=== PATIENT | male | born 1960 | race Caucasian/White ===

== ENCOUNTER → 2020-04-30 16:04 | Outpatient (CLI) | payer OTHER, SELFPAY ==
[2020-04-30 17:26] LABS: Cholesterol 156 mg/dL (140-199); HDL Cholesterol 48 mg/dL (40-60); Triglycerides 409 mg/dL (35-150)
== END ==
PROVIDERS: Referring Provider Internal Medicine Cardiovascular Disease; Visit Provider Internal Medicine Cardiovascular Disease
DX: E78.5 Hyperlipidemia, unspecified (principal)
CPT/HCPCS: 36415; 80061

== ENCOUNTER → 2020-12-28 09:36 | Outpatient (CLI) | payer OTHER, SELFPAY ==
[2020-12-28 10:02] LABS: COVID19 -Nasal RAPID Negative (Negative)
== END ==
PROVIDERS: PCP Internal Medicine; Visit Provider Surgery
DX: Z20.822 Contact with and (suspected) exposure to COVID-19 (principal)
CPT/HCPCS: 87635; C9803

== ENCOUNTER 2020-12-31 06:26 | Day surgery (SDC) | payer OTHER, SELFPAY ==
[2020-12-31 06:58] VITALS: BP 143/86; PULSE 53; RESP 14; TEMP 36.2; O2SAT 97; BMI 33.5
[2020-12-31] MEDS: SODIUM CHLORIDE 0.9% 1,000 ML 200 ML IV (07:09)
--- NOTE | 2020-12-31 07:42 | PM.HP.1 ---
History of Present Illness History of Present Illness Date Patient Seen: 12/31/20 Time Patient Seen: 07:42 Chief complaint: SCREENING COLONOSCOPY Narrative: This is a 60-year-old man who had a prior colonoscopy 6 and half years ago, on which a polyp was found. He denies any new symptoms since then. Specifically denies melena, hematochezia, unexplained abdominal pain, and unexplained weight loss. Denies any family history of colon polyps or colon cancers. He says he is otherwise in his usual state of health. ROS Thirteen system review is otherwise negative other than as mentioned below and in HPI. PE: GENERAL: Well groomed and cooperative. Appears stated age. Answers questions promptly and appropriately. Vital signs noted. HENT: Normocephalic, atraumatic. Hearing intact. EYES: Conjunctiva pink, sclera white, no periorbital swelling. CARDIOVASCULAR: Regular rate. No pedal edema. RESPIRATORY: Non-tachypneic, breathing comfortably on room air. GASTROINTESTINAL: Abdomen soft and non-distended GENITALURINARY: No flank tenderness. MUSCULOSKELETAL: Equal tone and mass bilaterally. SKIN: Warm, dry, soft, appropriate color for ethnicity. No other lesions, rashes, or wounds. NEURO: Alert and Oriented X 3. No gross sensory deficits, or cognitive issues. PSYCH: Appropriate affect and mood. Patient History Medical History Coronary artery disease Essential hypertension H/O adenomatous polyp of colon High coronary artery calcium score Mixed hyperlipidemia Obstructive sleep apnea, adult (~07/2011) Surgical History Anesthesia History of toe surgery (~1978) S/P inguinal hernia repair (~1979) Family & Social History Family History Father History of heart disease Mental health problem Mother Hypertension Mental health problem Grandmother Stroke Grandfather History of heart disease Grandmother Stroke Social History: household members spouse Tobacco & Substance use: Smoking Status Never smoker alcohol intake current alcohol intake frequency 0-2 drinks per day Substance Use Type does not use Meds Home Medications and Allergies Home Medications Medication Instructions Recorded Confirmed Type aspirin 81 mg tablet,delayed 81 mg PO DAILY 02/27/20 12/31/20 History release rosuvastatin 5 mg tablet 5 mg PO DAILY 02/27/20 12/31/20 History coenzyme Q10 100 mg capsule 100 mg PO DAILY 10/18/20 12/31/20 History brmckbxn-zxn-xdxao acid 300 1 tab PO DAILY 10/18/20 12/31/20 History mcg-lycopene 600 mcg-lutein 300 mcg tablet valsartan 80 mg tablet 80 mg PO DAILY tab 10/18/20 12/31/20 History omeprazole 40 mg capsule,delayed 40 mg PO DAILY #30 cap 11/27/20 12/31/20 Rx release Allergies Allergy/AdvReac Type Severity Reaction Status Date / Time doxycycline Allergy Severe Anaphylaxis Verified 12/31/20 06:53 atorvastatin AdvReac Intermediate Easy Verified 12/31/20 06:53 injuring losartan AdvReac Intermediate GI Verified 12/31/20 06:53 Exam Vital Signs (past 8 hours): - 12/31/20 06:58 Temperature 97.1 F L Pulse Rate 53 L Respiratory Rate 14 Blood Pressure 143/86 H Pulse Oximetry 97 Oxygen Delivery Method Nasal Cannula Assessment & Plan Assessment and plan (1) Personal history of colonic polyps: Status: Acute Assessment & Plan narrative: Risks and benefits of screening colonoscopy and possible polypectomy were discussed with the patient including risk of bleeding, perforation, need for additional procedures, risks of anesthesia. The patient desires to proceed with the colonoscopy procedure. COVID-19 COVID-19 status: Negative Result date/Date tested (Pos, Neg/Pending): 12/28/20 Time Spent With Patient Time with patient: 15-24 minutes Quality VTE Deep Vein Thrombosis/Pulmonary Embolism Present on Admission: No
--- NOTE | 2020-12-31 07:43 | P.OP.ENDO_ITS ---
Operative Date/Time/Diagnoses Date of procedure: 12/31/20 Time of procedure: 07:43 Pre-op diagnosis: Personal history of colon polyps, due for follow-up surveillance Procedure & Clinicians Study performed: Colonoscopy Procedural sedation performed by the endoscopist Same procedure as scheduled: Yes Indications: Personal history colon polyps, due for follow-up surveillance Surgeon: Hilda Neff Procedure Notes SCOAP/Timeout: Performed Procedure in detail: The patient was brought to the room and placed in left lateral decubitus position with all bony prominences padded. A time-out was performed and then the patient was given procedural sedation starting with 4 mg of Versed and 100 mcg of fentanyl. An additional 1 mg of Versed was given during the procedure for total of 5. Vitals were monitored throughout the procedure and remained stable. Once adequately sedated, the procedure was begun. A rectal exam was performed revealing no abnormalities. The colonoscope was then introduced to the rectum and advanced to the cecum in the usual fashion. The cecum was identified by the appendiceal orifice, the mucosal tri- fold, and the ileocecal valve. The scope was then retracted while rotating side to side and examining each mucosal fold. At the conclusion of the procedure retroflexion was performed and small grade 1-2 internal hemorrhoids without stigmata of bleeding were seen. The scope was then withdrawn from the rectum the procedure was concluded. The patient tolerated the procedure well and was transferred to the PACU in stable condition. Scope withdrawal time: 7 Sedation minutes: 22 Findings: other findings (Normal colon) Specimen(s): none sent Complications: none Impression: Normal colon, no polyps found today Post-procedure Recommendations: Colonscopy in 5 years (Due to personal history of colon polyps) Follow up: as needed Disposition: PACU
[2020-12-31] MEDS: fentaNYL 250 MCG/5 ML INJ IV (08:14)
[2020-12-31] MEDS: MIDAZOLAM 5 MG/5 ML VIAL IV (08:15)
[2020-12-31 08:23] VITALS: BP 128/80; PULSE 55; RESP 13; TEMP 36.4; O2SAT 94
[2020-12-31 08:26] VITALS: BP 129/84; PULSE 53; RESP 12; TEMP 36.4; O2SAT 95
[2020-12-31 08:28] VITALS: BP 122/82; PULSE 55; RESP 13; O2SAT 94
[2020-12-31 08:35] VITALS: BP 126/81; PULSE 52; RESP 13; TEMP 36.6; O2SAT 94
== END 2020-12-31 09:00 | disposition home or self-care (01) ==
PROVIDERS: PCP Internal Medicine; Referring Provider Surgery; Visit Provider Surgery
PROC: 0DJD8ZZ Inspection of Lower Intestinal Tract, Via Natural or Artificial Opening Endoscopic (ICD-10-PCS; CPT 45378; principal; 2020-12-31 07:45)
DX: Z12.11 Encounter for screening for malignant neoplasm of colon (principal); Z86.010 Personal history of colon polyps; I25.10 Atherosclerotic heart disease of native coronary artery without angina pectoris; I10 Essential (primary) hypertension; E78.2 Mixed hyperlipidemia; G47.33 Obstructive sleep apnea (adult) (pediatric); K64.0 First degree hemorrhoids
CPT/HCPCS: 45378; 99152; J2250; J3010

== ENCOUNTER 2021-03-19 14:52 | Emergency (ER) | payer OTHER, SELFPAY ==
[2021-03-19 14:56] VITALS: BP 142/84; PULSE 56; RESP 16; TEMP 36.4; O2SAT 97
[2021-03-19] MEDS: OXYCODONE/ACETAMINOPHEN 5/325 TABLET 1 TAB PO (18:49)
[2021-03-19] MEDS: IBUPROFEN 400 MG TABLET PO (18:49)
--- NOTE | 2021-03-19 19:00 | ED_ITS ---
HPI - Extremity Injury (Lower) General Chief Complaint: Extremity Injury, Lower Stated Complaint: INJURY TO CALF Time Seen by Provider: 03/19/21 15:03 Source: patient Mode of arrival: Ambulatory History of Present Illness HPI Narrative: 61-year-old gentleman with a history of hypertension hyperlipidemia on baby aspirin 81 mg presents with right calf pain. Notes he had been working in his yd this afternoon. Apparently the yd is quite slow but he started to slip and tried to catch himself with his right leg felt the loud pop in the calf and severe pain. The calf continues to swell and he is able to move his ankle without tenderness at his Achilles and there is no knee pain or tenderness Related Data Home Medications Medication Instructions Recorded Confirmed aspirin 81 mg tablet,delayed 81 mg PO DAILY 02/27/20 12/31/20 release rosuvastatin 5 mg tablet 5 mg PO DAILY 02/27/20 12/31/20 coenzyme Q10 100 mg capsule 100 mg PO DAILY 10/18/20 12/31/20 pschaaoy-epa-xtdkl acid 300 1 tab PO DAILY 10/18/20 12/31/20 mcg-lycopene 600 mcg-lutein 300 mcg tablet valsartan 80 mg tablet 80 mg PO DAILY tab 10/18/20 12/31/20 Previous Rx's Medication Instructions Recorded omeprazole 40 mg capsule,delayed 40 mg PO DAILY #30 cap 11/27/20 release oxycodone-acetaminophen 1 tab PO Q6H PRN 7 Days #14 tab 03/19/21 Allergies Allergy/AdvReac Type Severity Reaction Status Date / Time doxycycline Allergy Severe Anaphylaxis Verified 12/31/20 06:53 atorvastatin AdvReac Intermediate Easy Verified 12/31/20 06:53 injuring losartan AdvReac Intermediate GI Verified 12/31/20 06:53 Review of Systems Review of Systems Narrative: Pertinent positive and negative findings as per HPI Remainder of review of systems is otherwise unremarkable for Constitutional: Fevers, chills, weakness ENT: No sore throat, neck pain, ear pain CV: Chest pain, palpitations, Respiratory: Cough, wheeze, dyspnea GI: Nausea, vomiting, diarrhea, : Dysuria, hematuria, Patient History Medical History Coronary artery disease Essential hypertension H/O adenomatous polyp of colon High coronary artery calcium score Mixed hyperlipidemia Obstructive sleep apnea, adult (~07/2011) Surgical History Anesthesia History of toe surgery (~1978) S/P inguinal hernia repair (~1979) Family History Father History of heart disease Mental health problem Mother Hypertension Mental health problem Grandmother Stroke Grandfather History of heart disease Grandmother Stroke Social History marital status: number of children: 3 household members: spouse Smoking Status: Never smoker alcohol intake: current substance use type: does not use Smoking Status: Never smoker alcohol intake frequency: 0-2 drinks per day Substance Use Type: does not use Exam Narrative Exam Narrative: General: Alert appropriate in no acute distress Respiratory: Able to speak in full sentences, no obvious respiratory distress Skin: No obvious rashes, warm and dry Neurologic: Grossly intact no obvious asymmetries or abnormalities Psych: appropriate insight and affect, cooperative Extremity: Tenderness mid gastroc muscle right side with some swelling. No ecchymosis or contusion. No tenderness or defect to Achilles tendon, ankle or foot. No knee effusion or knee ligamentous tenderness. Initial Vital Signs Initial Vital Signs: Vital Signs Temperature 97.5 F L 03/19/21 14:56 Pulse Rate 56 L 03/19/21 14:56 Respiratory Rate 16 03/19/21 14:56 Blood Pressure 142/84 H 03/19/21 14:56 Pulse Oximetry 97 03/19/21 14:56 Procedures Orthopedic Splinting/Casting Left calf: Side: left Lower Extremity Injury Location: lower leg Lower Extremity Immobilizer: Suresh wrap Post splinting neuro exam: intact Post splinting vascular exam: intact Placed by: Provider Course Orders Ordered: Discontinued Medications Ibuprofen (Ibuprofen 400 Mg Tablet) 400 mg PO NOW ONE Stop: 03/19/21 15:04 Last Admin: 03/19/21 18:49 Dose: 400 mg Documented by: MICH Oxycodone/Acetaminophen (Oxycodone/Acetaminophen 5/325 Tablet) 1 tab PO NOW ONE Stop: 03/19/21 15:04 Last Admin: 03/19/21 18:49 Dose: 1 tab Documented by: MICH Oxycodone/Acetaminophen (Oxycodone/Apap 5/325 Prepack) 1 bottle [facility] ONE Stop: 03/19/21 19:37 Last Admin: 03/19/21 19:41 Dose: 1 bottle Documented by: Vital Signs Vital signs: Vital Signs - 8 hr 03/19/21 14:56 Temperature 97.5 F L Pulse Rate 56 L Respiratory Rate 16 Blood Pressure 142/84 H Pulse Oximetry 97 MDM - Extremity Injury (Lower) Medical Records Attestation: I reviewed the patient's medical records. [facility] Narrative Medical decision making narrative: [age] gentleman with exam and history consistent with gastroc muscle tear. At this point I do not suspect bony injury and imaging was not felt to be needed at this time. I do not suspect a DVT, internal derangement of the knee or Achilles tendon injury. Calf is wrapped w ith an Suresh wrap for compression and pain control. Discussed using crutches, elevating leg, pain control icing and follow-up with Orthopedic surgery. Discharge Plan Departure Patient Disposition: Home Clinical Impression: Gastrocnemius muscle tear Qualifiers: Encounter type: initial encounter Laterality: right Qualified Code(s): S86.111A - Strain of other muscle(s) and tendon(s) of posterior muscle group at lower leg level, right leg, initial encounter Instructions: DI for Calf Muscle Strain Activity Restrictions/Additional Instructions: Thank you for coming in today Your clinical exam suggests you have torn your calf muscle. I am less concerned about your Achilles tendon and I do not think that you have injury to knee at all. Please expect to hurt more tomorrow. Using 400 mg of ibuprofen (2 nerz-qdh-ffbrhra pills) and 1 Tylenol every 6 hours can be very helpful in controlling pain. For severe pain to ibuprofen and 1 Percocet. Compression will help with the muscle spasm, crutches will help so that your is mobile is you can be without causing herself more pain. Ice will be your friend Please follow-up with [facility] at [phone] for definitive diagnosis and treatment. I hope you heal quickly Prescriptions: New oxycodone-acetaminophen 5-325 mg tablet 1 tab PO Q6H PRN (Reason: pain) 7 Days Qty: 14 RF: 0 No Action rosuvastatin 5 mg tablet 5 mg PO DAILY RF: 0 aspirin 81 mg tablet,delayed release (DR/EC) 81 mg PO DAILY RF: 0 valsartan 80 mg tablet 80 mg PO DAILY RF: 0 coenzyme Q10 [Co Q-10] 100 mg capsule 100 mg PO DAILY RF: 0 Centrum Silver Men 300-600-300 mcg tablet 1 tab PO DAILY RF: 0 omeprazole 40 mg capsule,delayed release(DR/EC) 40 mg PO DAILY Qty: 30 RF: 2 Referrals: Jeyson Morrow MD [Primary Care Provider] -
[2021-03-19] MEDS: OXYCODONE/APAP 5/325 PREPACK 1 BOTTLE MISC (19:41)
--- NOTE | 2021-03-19 19:49 | PC.NURSE ---
Assessed my MD without RN involvement
== END 2021-03-19 19:49 | disposition home or self-care (01) ==
PROVIDERS: Emergency Provider Emergency Medicine; PCP Internal Medicine
DX: S86.111A Strain of other muscle(s) and tendon(s) of posterior muscle group at lower leg level, right leg, initial encounter (principal)
CPT/HCPCS: 99283

== ENCOUNTER → 2021-11-09 07:46 | Outpatient (CLI) | payer OTHER, SELFPAY ==
[2021-11-09 09:55] LABS: Add Manual Diff / Slide Review NO; Basophils Absolute Auto 0 /uL (0-100); Basophils Percent Auto 0.8 % (0-2); Eosinophils Absolute Auto 200 /uL (0-450); Eosinophils Percent Auto 5.7 % (2-4); Hematocrit 43.7 % (41-53); Lymphocytes Absolute Auto 1300 /uL (1100-4500); Lymphocytes Percent Auto 33.2 % (25-40); Mean Corpuscular HGB Conc 34.3 % (30-36); Mean Corpuscular Hemoglobin 33.8 PG (26-34); Mean Corpuscular Volume 98.5 fL (80-100); Monocytes Absolute Auto 400 /uL (0-900); Monocytes Percent Auto 10.6 % (3-14); Neutrophils Absolute Auto 2000 /uL (1500-7000); Neutrophils Percent Auto 49.7 % (50-75); Platelet Count 108 X10^3/uL (150-400); Red Blood Cell Count 4.44 X10^6/uL (4.5-5.9); Red Cell Distribution Width 13.4 % (11.6-14.8)
[2021-11-09 10:28] LABS: BUN Creatinine Ratio 14.7 (6-22); Blood Urea Nitrogen 15 mg/dL (9-20); Calcium 9.5 mg/dL (8.4-10.2); Carbon Dioxide 30 mmol/L (22-32); Chloride 107 mmol/L (98-107); Cholesterol 206 mg/dL (140-199); Estimated Glomerular Filt Rate > 60.0 mL/min (>60); Glucose 102 mg/dL (80-110); HDL Cholesterol 42 mg/dL (40-60); HEMOLYSIS < 15 (0-50); LDL Cholesterol Calculated 127 mg/dL (<100); Potassium 4.7 mmol/L (3.4-5.1); Sodium 140 mmol/L (137-145); Triglycerides 187 mg/dL (35-150)
== END ==
PROVIDERS: PCP Internal Medicine; Referring Provider Internal Medicine Cardiovascular Disease; Visit Provider Internal Medicine Cardiovascular Disease
DX: E78.5 Hyperlipidemia, unspecified (principal); I10 Essential (primary) hypertension
CPT/HCPCS: 36415; 80048; 80061; 85025

== ENCOUNTER → 2022-10-03 06:51 | Outpatient (CLI) | payer OTHER, SELFPAY ==
[2022-10-03 08:51] LABS: Alanine Aminotransferase 45 IU/L (<50); Albumin 3.8 g/dL (3.5-5.0); Albumin Globulin Ratio 1.4 (1.0-2.8); Alkaline Phosphatase 70 U/L (38-126); Aspartate Aminotransferase 36 IU/L (17-59); BUN Creatinine Ratio 11.7 (6-22); Bilirubin Total 0.9 mg/dL (0.2-1.3); Blood Urea Nitrogen 9 mg/dL (9-20); Calcium 8.9 mg/dL (8.4-10.2); Carbon Dioxide 29 mmol/L (22-32); Chloride 101 mmol/L (98-107); Cholesterol 181 mg/dL (140-199); Estimated Glomerular Filt Rate > 60 mL/min (>60); Globulin 2.8 g/dL (1.7-4.1); Glucose 90 mg/dL (80-110); HDL Cholesterol 42 mg/dL (40-60); HEMOLYSIS < 15 (0-50); LDL Cholesterol Calculated 76 mg/dL (<100); Potassium 4.1 mmol/L (3.4-5.1); Sodium 138 mmol/L (137-145); Total Protein 6.6 g/dL (6.3-8.2); Triglycerides 314 mg/dL (35-150)
[2022-10-03 09:23] LABS: Prostate Specific Antigen Scrn 1.19 ng/mL (0.1-4.0)
== END ==
PROVIDERS: PCP Internal Medicine; Referring Provider Internal Medicine; Visit Provider Internal Medicine
DX: E78.2 Mixed hyperlipidemia (principal); I10 Essential (primary) hypertension; I25.10 Atherosclerotic heart disease of native coronary artery without angina pectoris; Z12.5 Encounter for screening for malignant neoplasm of prostate
CPT/HCPCS: 36415; 80053; 80061; G0103

== ENCOUNTER → 2023-02-03 06:52 | Outpatient (CLI) | payer OTHER, SELFPAY ==
[2023-02-03 08:59] LABS: Add Manual Diff / Slide Review NO; Basophils Absolute Auto 0 /uL (0-100); Basophils Percent Auto 0.9 % (0-2); Eosinophils Absolute Auto 100 /uL (0-450); Eosinophils Percent Auto 3.3 % (2-4); Hemoglobin 14.3 g/dL (13.5-17.5); Lymphocytes Absolute Auto 1300 /uL (1100-4500); Lymphocytes Percent Auto 36.2 % (25-40); Mean Corpuscular HGB Conc 34.9 % (30-36); Mean Corpuscular Hemoglobin 34.3 PG (26-34); Mean Corpuscular Volume 98.4 fL (80-100); Monocytes Absolute Auto 400 /uL (0-900); Monocytes Percent Auto 10.6 % (3-14); Neutrophils Absolute Auto 1700 /uL (1500-7000); Platelet Count 103 X10^3/uL (150-400); Red Blood Cell Count 4.16 X10^6/uL (4.5-5.9); Red Cell Distribution Width 13.7 % (11.6-14.8); White Blood Cell Count 3.6 X10^3/uL (4.5-11.0)
[2023-02-03 09:25] LABS: BUN Creatinine Ratio 11.2 (6-22); Blood Urea Nitrogen 10 mg/dL (9-20); Calcium 8.9 mg/dL (8.4-10.2); Carbon Dioxide 29 mmol/L (22-32); Chloride 102 mmol/L (98-107); Cholesterol 159 mg/dL (140-199); Estimated Glomerular Filt Rate > 60 mL/min (>60); Glucose 94 mg/dL (80-110); HDL Cholesterol 43 mg/dL (40-60); HEMOLYSIS < 15 (0-50); LDL Cholesterol Calculated 66 mg/dL (<100); Potassium 4.1 mmol/L (3.4-5.1); Sodium 137 mmol/L (137-145); Triglycerides 252 mg/dL (35-150)
== END ==
PROVIDERS: PCP Internal Medicine; Referring Provider Internal Medicine Cardiovascular Disease; Visit Provider Internal Medicine Cardiovascular Disease
DX: E78.5 Hyperlipidemia, unspecified (principal); I10 Essential (primary) hypertension
CPT/HCPCS: 36415; 80048; 80061; 85025

== ENCOUNTER 2024-02-09 12:56 | Day surgery (SDC) | payer OTHER, SELFPAY ==
[2024-02-03 15:00] VITALS: BMI 32.8
[2024-02-09 13:25] VITALS: BP 140/82; PULSE 55; RESP 16; TEMP 36.1; O2SAT 98; BMI 32.8
[2024-02-09] MEDS: LACTATED RINGERS 1,000 ML 42 ML IV ×2 (13:42→15:59)
[2024-02-09] MEDS: ACETAMINOPHEN 325 MG TABLET 975 MG PO (13:44)
--- NOTE | 2024-02-09 14:04 | PM.PREOP ---
Pre-operative Note COVID-19 COVID-19 status: Not tested Interval Note History & Physical reviewed/Exam performed by Physician: Yes Changes to H&P: No ASA Class (for procedural sedation): III
[2024-02-09] MEDS: CEFAZOLIN 2 GM/100 ML PREMIX 100 ML IV (14:42)
[2024-02-09] MEDS: BUPIVACAINE 0.5% W/ EPI (PF) 30 ML VIAL INJ (14:57)
--- NOTE | 2024-02-09 15:42 | PM.OP.1 ---
Operative Date/Time/Diagnoses Date of procedure: 02/09/24 Time of procedure: 15:42 Pre-op diagnosis: Right inguinal hernia Post-op diagnosis: same Procedure & Clinicians Procedure: Open right inguinal hernia repair with mesh Same procedure as scheduled: Yes Surgeon: Santos [employer] Stillman: Luis Foster Anesthesia Type: General Operative Notes Procedure in detail: Preoperative antibiotic was administered. The patient was brought to the operating room and placed on the table in supine position general anesthesia was induced. The right groin was prepped and draped in the normal fashion and a time-out was performed. Roughly 10 mL of local anesthetic were injected into the skin and subcutaneous adipose tissue over the right groin. A 6 cm incision was made over the right inguinal canal. Dissection was carried down through the subcutaneous adipose tissue. We exposed the external oblique aponeurosis in the direction of the fibers. Additional local was injected deep to the aponeurosis. A 15 blade scalpel was used to manas the external oblique aponeurosis. Metzenbaum scissors were used to carefully open the aponeurosis in the direction of the fibers taking care not to injure the underlying ilioinguinal nerve. We completely exposed the inguinal canal. The cord was dissected free from the inguinal ligament and floor of the inguinal canal and the external oblique aponeurosis was dissected off of the internal oblique taking care not to injure the hypogastric nerve. We encircled the cord with a [place] drain for retraction. There was an indirect hernia with fatty cord lipoma. We dissected the hernia sac and the cord lipoma off of the cord and back the abdomen. We then placed a polypropylene mesh against the floor of the inguinal canal. The mesh was secured with multiple interrupted 3-0 Prolene sutures to the pubic tubercle and shelving edge of the inguinal ligament as well as to the conjoint tendon medially. We overlapped the tails to recreate an internal ring and secured the medial tail to the inguinal ligament with additional sutures. We injected some more local into the fatty tissue in the inguinal canal and cord. Finally, we removed the Rebecca drain and closed the external oblique fascia with a running 3-0 Vicryl suture. Skin was closed with interrupted 3-0 Vicryl dermal sutures and a running 4 Monocryl subcuticular stitch. EBL 5 mL The patient was awakened and brought to recovery room. Luis CARD provided assistance with exposure, retraction and closure of incisions. Post-operative Condition: stable Disposition: PACU
[2024-02-09 15:56] VITALS: BP 123/68; PULSE 73; RESP 12; TEMP 36.8; O2SAT 95
[2024-02-09 16:01] VITALS: BP 121/63; PULSE 71; RESP 12; TEMP 36.6; O2SAT 95
[2024-02-09 16:06] VITALS: BP 124/72; PULSE 74; RESP 14; TEMP 36.7; O2SAT 95
== END 2024-02-09 16:20 | disposition home or self-care (01) ==
PROVIDERS: PCP Internal Medicine; Referring Provider Surgery; Visit Provider Surgery
PROC: (CPT 49505; principal; 2024-02-09 14:15)
DX: K40.90 Unilateral inguinal hernia, without obstruction or gangrene, not specified as recurrent (principal); D17.6 Benign lipomatous neoplasm of spermatic cord
CPT/HCPCS: 49505; J0690; J1100; J2405; J2704

== ENCOUNTER → 2024-04-11 06:49 | Outpatient (CLI) | payer MEDICARE, OTHER, SELFPAY ==
[2024-04-11 08:55] LABS: Cholesterol 174 mg/dL (140-199); HDL Cholesterol 48 mg/dL (40-60); LDL Cholesterol Calculated 92 mg/dL (<100); Triglycerides 169 mg/dL (35-150)
[2024-04-11 09:15] LABS: Prostate Specific Antigen Scrn 1.17 ng/mL (0.1-4.0)
== END ==
PROVIDERS: PCP Internal Medicine; Referring Provider Internal Medicine Cardiovascular Disease; Visit Provider Internal Medicine Cardiovascular Disease
DX: Z12.5 Encounter for screening for malignant neoplasm of prostate (principal); E78.5 Hyperlipidemia, unspecified; R93.1 Abnormal findings on diagnostic imaging of heart and coronary circulation
CPT/HCPCS: 36415; 80061; G0103

== ENCOUNTER → 2024-10-17 11:57 | Outpatient (CLI) | payer MEDICARE, OTHER, SELFPAY ==
--- NOTE | 2024-10-17 11:58 | DI.RAD.S_ITS ---
PROCEDURE: XR LUMBAR SPINE 2-3V INDICATIONS: back pain TECHNIQUE: 3 views of the lumbar spine were acquired. COMPARISON: None. FINDINGS: Lumbar spine curvature and alignment: Normal. Bones: There are no osseous abnormalities. Disc spaces: Mild L3-4 and L4-5 degenerative disc disease appreciated. There is moderate L4-5 and severe L5-S1 degenerative facet disease. Soft tissues: No soft tissue swelling, calcification or mass. IMPRESSION: Degeneration. Dictated by: Jeyson Pearl M.D. on 10/18/2024 at 10:56 Approved by: Jeyson Pearl M.D. on 10/18/2024 at 10:57
--- NOTE | 2024-10-17 11:58 | DI.RAD.S_ITS ---
PROCEDURE: XR ABDOMEN MIN 2V INDICATIONS: back pain TECHNIQUE: 2 views of the abdomen were acquired. COMPARISON: None. FINDINGS: Surgical changes and devices: None. Bowel: No pneumoperitoneum. The bowel gas pattern is normal. Soft tissues: No masses; visualized solid organ contours appear normal in size. 5-6 rounded calcification the true pelvis are almost certainly phleboliths Bones: No suspicious bony abnormalities. IMPRESSION: Negative Dictated by: Jeyson Pearl M.D. on 10/18/2024 at 10:50 Approved by: Jeyson Pearl M.D. on 10/18/2024 at 10:51
== END ==
PROVIDERS: PCP Internal Medicine; Referring Provider Internal Medicine; Visit Provider Internal Medicine
DX: M51.369 Other intervertebral disc degeneration, lumbar region without mention of lumbar back pain or lower extremity pain (principal); M47.816 Spondylosis without myelopathy or radiculopathy, lumbar region; M47.817 Spondylosis without myelopathy or radiculopathy, lumbosacral region; M54.9 Dorsalgia, unspecified
CPT/HCPCS: 72100; 74019

== ENCOUNTER → 2025-04-11 06:52 | Outpatient (CLI) | payer MEDICARE, OTHER, SELFPAY ==
[2025-04-11 07:47] LABS: Cholesterol 179 mg/dL (140-199); HDL Cholesterol 49 mg/dL (40-60); Triglycerides 174 mg/dL (35-150)
== END ==
PROVIDERS: PCP Internal Medicine; Referring Provider Internal Medicine Cardiovascular Disease; Visit Provider Internal Medicine Cardiovascular Disease
DX: Z12.5 Encounter for screening for malignant neoplasm of prostate (principal); E78.5 Hyperlipidemia, unspecified
CPT/HCPCS: 36415; 80061; G0103

== ENCOUNTER → 2025-07-06 15:46 | Outpatient (CLI) | payer MEDICARE, OTHER, SELFPAY ==
[2025-07-06 18:04] LABS: Alanine Aminotransferase 34 IU/L (<50); Albumin 4.1 g/dL (3.5-5.0); Albumin Globulin Ratio 1.7 (1.0-2.8); Alkaline Phosphatase 70 U/L (38-126); Blood Urea Nitrogen 11 mg/dL (9-20); Calcium 9.5 mg/dL (8.4-10.2); Carbon Dioxide 25 mmol/L (22-32); Chloride 103 mmol/L (98-107); Estimated Glomerular Filt Rate > 60 mL/min (>60); Globulin 2.4 g/dL (1.7-4.1); Glucose 96 mg/dL (70-99); HEMOLYSIS < 15 (0-50); Potassium 4.2 mmol/L (3.4-5.1); Sodium 137 mmol/L (137-145); Total Protein 6.5 g/dL (6.3-8.2)
== END ==
PROVIDERS: PCP Internal Medicine; Referring Provider Internal Medicine; Visit Provider Internal Medicine
DX: I10 Essential (primary) hypertension (principal); E78.2 Mixed hyperlipidemia
CPT/HCPCS: 36415; 80053